=== PATIENT | female | born 1985 | race Caucasian/White ===

== ENCOUNTER 2022-02-09 18:06 | Emergency (ER) | payer OTHER ==
[~2022-02-09 18:06] MED LIST: PRENATAL FORMU1 EACH PO
[2022-02-09] MEDS ORDERED: CIPRODEX OTIC7.5 ML AU (21:27)
[2022-02-09] MEDS ORDERED: MEDROL 4MG DOSEP4 MG PO (21:27)
== END 2022-02-09 21:32 | disposition home or self-care (01) ==
LOC: FER 18:06
DX: H60.93 Unspecified otitis externa, bilateral (principal)
CPT/HCPCS: 99282